=== PATIENT | female | born 1975 | race Caucasian/White ===

== ENCOUNTER 2017-10-24 16:30 | Emergency (ER) | payer BC, OTHER ==
[~2017-10-24] VITALS: Ht 172.7 cm; Wt 99.3 kg
[2017-10-24 16:37] VITALS: BP 139/81
--- NOTE | 2017-10-24 16:41 | NUR ---
DR ST NOTIFIED OF PT CONDITION. SENT BACK TO LOBBY TO WAIT FOR BED, CONDITION STABLE AT THIS TIME.
--- NOTE | 2017-10-24 16:58 | NUR ---
pt was taken by wheelchair to er bed 06
--- NOTE | 2017-10-24 17:00 | NUR ---
PATIENT IS A 42 Y/O FEMALE WHO PRESENTS TO THE ED FOR SORE THROAT AND DIZZINESS. PT STATES THAT SHE DOESN'T FEEL WELL. PT DENIES PAIN AT THIS TIME. PT DENIES CP, SOB, N/V/D. PT AAOX4, RR EVEN/UNLABORED. PT REPOSITIONED FOR COMFORT, BED IN LOWEST POSITION. ER MD DR. ST NOTIFIED. WILL CONTINUE TO MONITOR.
[2017-10-24 17:50] VITALS: BP 139/81
--- NOTE | 2017-10-24 18:32 | NUR ---
PT LWOBS. WAS SEEN WALKING OUT W/ STEADY GAIT WITH ANOTHER MALE. DR ST NOTIFIED.
== END 2017-10-24 18:28 | disposition left against medical advice (07) ==
LOC: MED 16:30
DX: R42 Dizziness and giddiness (principal); J02.9 Acute pharyngitis, unspecified
CPT/HCPCS: 81025